=== PATIENT | female | born 1985 | race Caucasian/White ===

== ENCOUNTER 2018-09-30 21:46 | Emergency (ER) | payer SELFPAY ==
--- NOTE | 2018-10-01 03:07 | ER Document Report ---
Entered by NANI ALVES SCRIBE 09/30/18 0494 Acting as scribe for:ALDO ORTIZ DO ED Skin Rash/Insect Bite/Abscs - General Chief Complaint: Rash Stated Complaint: RASH Time Seen by Provider: 09/30/18 23:19 Mode of Arrival: Ambulatory Information source: Patient Notes: Patient is a 33 year old female presenting to the emergency department complaining of a rash on her bilateral upper and lower extremities onset 3 days ago. Patient describes the rash as red and itchy located primarily on her bilateral arms. She reports having a similar rash recently but states it resolved on its own. She also complains of nausea and a fever of 100.4 onset this morning. She denies sore throat, rhinorrhea, earache, vomiting or diarrhea. States she is a lesbian, has not had sex with a man over 6 months. Declines test. TRAVEL OUTSIDE OF THE [place] IN LAST 30 DAYS: No - Related Data Allergies/Adverse Reactions: No Known Allergies Allergy (Unverified 04/14/15 14:30) Past Medical History - General Information source: Patient - Social History Smoking Status: Current Every Day Smoker Cigarette use (# per day): Yes Chew tobacco use (# tins/day): No Smoking Education Provided: No Frequency of alcohol use: None Drug Abuse: None Family History: Reviewed & Not Pertinent Pulmonary Medical History: Reports: Hx Asthma Past Surgical History: Reports: Hx Gynecologic Surgery - d&C x 2 Review of Systems - Review of Systems Constitutional: No symptoms reported EENT: No symptoms reported Cardiovascular: No symptoms reported Respiratory: No symptoms reported Gastrointestinal: No symptoms reported Genitourinary: No symptoms reported Female Genitourinary: No symptoms reported Musculoskeletal: No symptoms reported Skin: See HPI, Rash Hematologic/Lymphatic: No symptoms reported Neurological/Psychological: No symptoms reported -: Yes All other systems reviewed and negative Physical Exam - Notes Notes: GENERAL: Alert, interacts well. No acute distress. HEAD: Normocephalic, atraumatic. EYES: Pupils equal, round, and reactive to light. Extraocular movements intact. ENT: Oral mucosa moist, tongue midline. NECK: Full range of motion. Supple. Trachea midline. LUNGS: No respiratory distress. HEART: Regular rate and rhythm. No murmurs, gallops, or rubs. EXTREMITIES: Moves all 4 extremities spontaneously. NEUROLOGICAL: Alert and oriented x3. Normal speech. PSYCH: Normal affect, normal mood. SKIN: Warm, dry. Scattered raised areas of erythema across the arms bilaterally, few on the bilateral thighs, small amount of clearing and crusting in the center. Negative Nikolsky sign Course - Re-evaluation Re-evalutation: 09/30/18 23:56 Rash appears consistent with tinea corporis however it is possible that this is nummular eczema. Patient does not have a fever here. Patient only had a fever for a part of a day, there were no other associated symptoms. Discussed with patient that I do not have an explanation for the fever and if it recurs or she develops new symptoms she needs to return. Discussed with patient that the treatment for ringworm is antifungals in the treatment for eczema is steroids and that the steroids could make a fungal infection worse. Patient is agreeable to starting with topical antifungals and following up with the secretary of police. Discharged home. Discharge - Discharge Clinical Impression: Tinea corporis Condition: Stable Disposition: HOME, SELF-CARE Additional Instructions: Ringworm (Tinea Corporis) You have a fungal infection of the skin, called tinea corporis. This is sometimes called "ringworm." because it tends forms an enlarging ring on the skin. The infection results from exposure to another person or an animal carrying the fungus, but it is only mildly contagious. There can be mild itching, or sometimes no symptoms at all. The infection is usually treated with antifungal cream. This is applied two or three times daily. Healing may take two or three weeks. Occasionally, oral medication is necessary, for example, when the infection if very large, or if fungus involves the scalp or nails. Fingernail or toenail infections are very difficult to eradicate, often requiring many weeks of treatment. Return for re-examination if your symptoms change significantly -- for example, if you develop fever or chills, red streaks, increasing tenderness, swelling, or blisters at the infection site. It is possible that this is not ringworm but it is instead eczema. If your rash worsens instead of improving with the topical antifungal cream please follow-up with a secretary of police. Please apply the topical antifungal cream of your choice such as Lamisil, Lotrimin or clotrimazole. These are all available [id number] in the drugstore. Forms: Return to Work Scribe Attestation: 10/01/18 03:06 I personally performed the services described in the documentation, reviewed and edited the documentation which was dictated to the scribe in my presence, and it accurately records my words and actions. I personally performed the services described in the documentation, reviewed and edited the documentation which was dictated to the scribe in my presence, and it accurately records my words and actions.
== END 2018-10-01 00:19 | disposition home or self-care (01) ==
LOC: ER 21:46
DX: B35.4 Tinea corporis (principal); R11.0 Nausea; R50.9 Fever, unspecified; F17.210 Nicotine dependence, cigarettes, uncomplicated
CPT/HCPCS: 99282

== ENCOUNTER 2018-12-08 09:42 | Emergency (ER) | payer SELFPAY ==
[2018-12-08 09:59] LABS: APPEARANCE,URINE CLEAR; BILIRUBIN,URINE NEGATIVE (NEGATIVE); GLUCOSE, URINE NEGATIVE (NEGATIVE); KETONES,URINE TRACE mg/dL (NEGATIVE); LEUKOCYTE ESTERASE,URINE LARGE (NEGATIVE); NITRITE,URINE NEGATIVE (NEGATIVE); PROTEIN,URINE NEGATIVE (NEGATIVE); URINE SPECIFIC GRAVITY 1.024; UROBILINOGEN,URINE NEGATIVE mg/dL (<2.0)
[2018-12-08 10:00] LABS: COLOR,URINE YELLOW
[2018-12-08] MEDS ORDERED: IBUPROFEN 600 MG TABLET PO ONE (10:13)
--- NOTE | 2018-12-08 10:15 | ER Document Report ---
ED Medical Screen (RME) - General Chief Complaint: Pelvic Pain Stated Complaint: ABDOMINAL PAIN Time Seen by Provider: 12/08/18 10:03 Mode of Arrival: Ambulatory Information source: Patient TRAVEL OUTSIDE OF THE [place] IN LAST 30 DAYS: No - HPI Patient complains to provider of: VAGINAL D/C Notes: 12/08/18 10:14 Patient here with complaints of vaginal discharge. This occurred after having intercourse with another female. She states that they used fingers, a strap on. This was a week ago and since that time she has had vaginal discharge and lower pelvic discomfort. No fever. No nausea, vomiting, diarrhea. Exam No distress, nontoxic-appearing. Lungs clear and equal throughout. Heart sounds normal. No focal abdominal tenderness on exam. No CVA tenderness. Plan Urine, urine , GC chlamydia, wet prep. An initial examination was made on the patient as part of the triage process, and it was determined a more comprehensive evaluation was necessary. Initial labs were ordered and patient was transferred to another provider in the ED who assumed care and finished evaluation and plan. - Related Data Allergies/Adverse Reactions: morphine Allergy (Verified 12/08/18 10:11) Past Medical History - Social History Frequency of alcohol use: None Drug Abuse: None - Past Medical History Cardiac Medical History: Reports: Hx Congestive Heart Failure Pulmonary Medical History: Reports: Hx Asthma Renal/ Medical History: Denies: Hx Peritoneal Dialysis Past Surgical History: Reports: Hx Gynecologic Surgery - d&C x 2 Physical Exam - Vital signs Vitals: Temp Pulse Resp BP Pulse Ox 97.9 F 91 18 120/75 99 12/08/18 09:50 12/08/18 09:50 12/08/18 09:50 12/08/18 09:50 12/08/18 09:50 Course - Vital Signs Vital signs: Temp Pulse Resp BP Pulse Ox 97.9 F 91 18 120/75 99 12/08/18 09:50 12/08/18 09:50 12/08/18 09:50 12/08/18 09:50 12/08/18 09:50 - Laboratory Laboratory results interpreted by me: 12/08/18 09:43 Urine Ketones TRACE H Ur Leukocyte Esterase LARGE H
[2018-12-08] MEDS ORDERED: ACETAMINOPHEN 325 MG TABLET PO ONE (12:02)
[2018-12-08 12:17] LABS: RBCS (WET MOUNT) NO RBCS SEEN; T.VAGINALIS (WET MOUNT) TRICHOMONAS SEEN; WBCS (WET MOUNT) FEW WBCS SEEN; YEAST (WET MOUNT) NO YEAST SEEN
[2018-12-08 12:43] LABS: ABSOLUTE EOSINOPHILS # (AUTO) 0.1 10^3/uL (0.0-0.6); ABSOLUTE LYMPHOCYTES (AUTO) 2.5 10^3/uL (0.5-4.7); ABSOLUTE MONOCYTES (AUTO) 0.5 10^3/uL (0.1-1.4); ABSOLUTE NEUT (AUTO) 5.4 10^3/uL (1.7-8.2); BASOPHILS % (AUTO) 0.3 % (0-2); EOSINOPHILS % (AUTO) 0.8 % (0-6); HEMATOCRIT 36.3 % (36.0-47.0); HEMOGLOBIN 12.4 g/dL (12.0-15.5); LYMPHOCYTES % (AUTO) 28.9 % (13-45); MEAN CORPUSCULAR HEMOGLOBIN 31.2 pg (27.0-33.4); MEAN CORPUSCULAR HGB CONC 34.1 g/dL (32.0-36.0); MEAN CORPUSCULAR VOLUME 92 fl (80-97); PLATELET COUNT 321 10^3/uL (150-450); RED BLOOD COUNT 3.96 10^6/uL (3.72-5.28); RED CELL DISTRIBUTION WIDTH 12.9 % (11.5-14.0); TOTAL CELLS COUNTED % (AUTO) 100 %; WHITE BLOOD COUNT 8.5 10^3/uL (4.0-10.5)
[2018-12-08 13:04] LABS: ALANINE AMINOTRANSFERASE 57 U/L (9-52); ALBUMIN 3.8 g/dL (3.5-5.0); ALKALINE PHOSPHATASE 81 U/L (38-126); ANION GAP 8 (5-19); ASPARTATE AMINO TRANSFERASE 39 U/L (14-36); BILIRUBIN,DIRECT 0.2 mg/dL (0.0-0.4); BILIRUBIN,TOTAL 0.3 mg/dL (0.2-1.3); BLOOD UREA NITROGEN 13 mg/dL (7-20); CALCIUM 9.1 mg/dL (8.4-10.2); CARBON DIOXIDE 26 mmol/L (22-30); CHLORIDE 107 mmol/L (98-107); GLUCOSE 89 mg/dL (75-110); POTASSIUM 4.3 mmol/L (3.6-5.0); SODIUM 141.4 mmol/L (137-145); TOTAL PROTEIN 6.7 g/dL (6.3-8.2)
[2018-12-08 14:26] LABS: CHLAM PCR NOT DETECTED (NOT DETECT); GON PCR NOT DETECTED (NOT DETECT)
[2018-12-08] MEDS ORDERED: CEPHALEXIN 500 MG CAPSULE PO ONE (14:35)
[2018-12-08] MEDS ORDERED: METRONIDAZOLE 500 MG TABLET PO ONE (14:35)
--- NOTE | 2018-12-08 14:48 | RADIOLOGY REPORT (SQ) ---
EXAM DESCRIPTION: U/S NON OB PEL TV W/DOPPLER COMPLETED DATE/TIME: 12/08/2018 2:40 pm REASON FOR STUDY: tender RLQ, possible TOA? COMPARISON: None. TECHNIQUE: Dynamic and static grayscale images acquired of the pelvis via transvaginal approach and recorded on PACS. Additional selected color Doppler and spectral images recorded. LIMITATIONS: None. FINDINGS: UTERUS: Contour normal. No mass. ENDOMETRIAL STRIPE: No focal or generalized thickening. No masses. CERVIX: No nabothian cysts. RIGHT OVARY AND DOPPLER: Normal size. No worrisome masses. Incidental note is made of a dominant fol licle. Normal arterial vascular flow without evidence for torsion. LEFT OVARY AND DOPPLER: Normal size. No worrisome masses. Normal arterial vascular flow without evide nce for torsion. FREE FLUID: A small amount of simple appearing free fluid is seen within the pelvic cul-de-sac. OTHER: No other significant finding. MEASUREMENTS: UTERUS: 7.3 x 4.1 x 6.0 cm ENDOMETRIAL STRIPE: 0.9 cm RIGHT OVARY: 3.6 x 2.9 x 3.0 cm LEFT OVARY: 1.8 x 2.2 x 1.5 cm IMPRESSION: NORMAL TRANSVAGINAL PELVIC ULTRASOUND. TECHNICAL DOCUMENTATION: JOB ID: [id number] [employer]- All Rights Reserved Rev-12/24 Reading location - IP/workstation name: [email or web address]
[2018-12-08 15:51] VITALS: BP 101/59
--- NOTE | 2018-12-10 04:07 | ER Document Report ---
Entered by LAUREN AGUERO SCRIBE 12/08/18 1127 Acting as scribe for:ALDO ORTIZ DO ED GI/ - General Chief Complaint: Pelvic Pain Stated Complaint: ABDOMINAL PAIN Time Seen by Provider: 12/08/18 10:03 Mode of Arrival: Ambulatory Information source: Patient Notes: 33-year-old female who presents to the emergency department today with complaints of vaginal discharge along with associated abdominal pain. Patient states she had a new female sexual partner recently so there is some concern for STI. Patient describes her vaginal discharge as being thick. Patient describes her abdominal pain as a pressure sensation stating that she feels like she has to pee all the time. Patient has had fevers and diarrhea although she has not taken her temperature. Patient denies any history of STI. TRAVEL OUTSIDE OF THE [place] IN LAST 30 DAYS: No - Related Data Allergies/Adverse Reactions: morphine Allergy (Verified 12/08/18 10:11) Past Medical History - General Information source: Patient - Social History Smoking Status: Current Every Day Smoker Cigarette use (# per day): Yes Frequency of alcohol use: None Drug Abuse: None Lives with: Family Family History: Reviewed & Not Pertinent Patient has suicidal ideation: No Patient has homicidal ideation: No - Past Medical History Cardiac Medical History: Reports: Hx Congestive Heart Failure Pulmonary Medical History: Reports: Hx Asthma Past Surgical History: Reports: Hx Gynecologic Surgery - d&C x 2 Review of Systems - Review of Systems Constitutional: See HPI, Fever EENT: No symptoms reported Cardiovascular: No symptoms reported Respiratory: No symptoms reported Gastrointestinal: See HPI, Abdominal pain, Diarrhea Genitourinary: No symptoms reported Female Genitourinary: See HPI, Vaginal discharge Musculoskeletal: No symptoms reported Skin: No symptoms reported Hematologic/Lymphatic: No symptoms reported Neurological/Psychological: No symptoms reported -: Yes All other systems reviewed and negative Physical Exam - Vital signs Vitals: Temp Pulse Resp BP Pulse Ox 97.9 F 91 18 120/75 99 12/08/18 09:50 12/08/18 09:50 12/08/18 09:50 12/08/18 09:50 12/08/18 09:50 - Notes Notes: PHYSICAL EXAM GENERAL: Alert, interacts well. No acute distress. HEAD: Normocephalic, atraumatic. EYES: Pupils equal, round, and reactive to light. Extraocular movements intact. ENT: Oral mucosa moist, tongue midline. NECK: Full range of motion. Supple. Trachea midline. LUNGS: No respiratory distress. ABDOMEN: Soft, RLQ, LLQ, and suprapubic tenderness with palpation. Non- distended. Bowel sounds present in all 4 quadrants. No guarding, rigidity, or rebound. EXTREMITIES: Moves all 4 extremities spontaneously. No edema, radial and dorsalis pedis pulses 2/4 bilaterally. No cyanosis. BACK: Left CVA tenderness to percussion. NEUROLOGICAL: Alert and oriented x3. Normal speech. PSYCH: Normal affect, normal mood. SKIN: Warm, dry, normal turgor. No rashes or lesions noted. - Genitourinary External exam: Normal Speculum exam: Vaginal discharge - Thin greenish vaginal discharge Vaginal bleeding: None Bimanuel exam: Adnexal tenderness - Thin greenish vaginal discharge. Right adnexal tenderness Course - Re-evaluation Re-evalutation: 12/08/18 14:35 CBC unremarkable, CMP grossly unremarkable, urinalysis shows trace ketones but large leukocyte esterase, since she has pressure when she urinates even though there are 30 squames epithelial cells I will treat this is a true urinary tract infection, pelvic examination does show tenderness over the right adnexa so transvaginal ultrasound was ordered to rule out tubo-ovarian abscess, wet prep does show trichomonas, no gonorrhea or chlamydia detected on endocervical swabs. - Vital Signs Vital signs: Temp Pulse Resp BP Pulse Ox 97.7 F 82 14 101/59 L 100 12/08/18 15:49 12/08/18 15:49 12/08/18 15:49 12/08/18 15:49 12/08/18 15:49 - Laboratory Result Diagrams: 12/08/18 12:31 12/08/18 12:31 Laboratory results interpreted by me: 12/08/18 12/08/18 09:43 12:31 AST 39 H ALT 57 H Urine Ketones TRACE H Ur Leukocyte Esterase LARGE H Discharge - Discharge Clinical Impression: Trichomonal vaginitis UTI (urinary tract infection) Qualifiers: Urinary tract infection type: acute cystitis Hematuria presence: without hematuria Qualified Code(s): N30.00 - Acute cystitis without hematuria Condition: Stable Disposition: HOME, SELF-CARE Additional Instructions: Trichomonas Infection Trichomoniasis is infection of the vagina with Trichomonas vaginalis. It can be asymptomatic or cause urethritis, vaginitis, or occasionally cystitis, epididymitis, or prostatitis. Diagnosis is by microscopic examination of vaginal or prostatic secretions or by urethral culture. Patients and sex partners are treated with metronidazole. In women, symptoms range from none to copious, yellow-green, frothy vaginal discharge with soreness of the vulva and perineum, dyspareunia, and dysuria. Asymptomatic infection may become symptomatic at any time as the vulva and perineum become inflamed and edema develops in the labia. The vaginal lopez and surface of the cervix may have punctate, red "strawberry" spots. Urethritis and possibly cystitis may also occur. Your sex partners should be screened and treated for trichomoniasis. They can be seen by the primary care physician, by the health department or in the emergency department. Urinary Tract Infection Your evaluation indicates that you have a urinary tract infection. This is due to germs growing in the bladder. This is a common problem. This infection usually responds quickly to antibiotics. Your antibiotic should be taken exactly as prescribed. Drink plenty of fluids -- three to four quarts a day. Occasionally, a bladder anesthetic will be prescribed to help stop the feeling of urgency until the antibiotic has a chance to clear the infection. This may cause your urine to be dark orange. Certain urine infections require a culture. If the doctor obtained a culture, the results will be back in two days. You should call to see if a change in treatment is needed. A repeat urinalysis after you finish treatment is often recommended. The physician will let you know if further testing is required. Call the doctor if you develop fever, chills, flank pain, inability to urinate, or blood in the urine. Prescriptions: Cephalexin Monohydrate [Keflex 500 mg Capsule] 1,000 mg PO BID 5 Days capsule Metronidazole [Flagyl 500 mg Tablet] 500 mg PO BID #14 tablet Forms: Return to Work I personally performed the services described in the documentation, reviewed and edited the documentation which was dictated to the scribe in my presence, and it accurately records my words and actions.
== END 2018-12-08 15:51 | disposition home or self-care (01) ==
LOC: ER 09:42
DX: A59.01 Trichomonal vulvovaginitis (principal); N30.00 Acute cystitis without hematuria; R19.7 Diarrhea, unspecified; F17.210 Nicotine dependence, cigarettes, uncomplicated; J45.909 Unspecified asthma, uncomplicated; R50.9 Fever, unspecified; Z88.5 Allergy status to narcotic agent
CPT/HCPCS: 36415; 76830; 80053; 81001; 81025; 85025; 87086; 87210; 87491; 87591; 93976; 99284

== ENCOUNTER 2019-06-21 09:06 | Emergency (ER) | payer MEDICAID ==
[2019-06-21] MEDS ORDERED: ACETAMINOPHEN 325 MG TABLET PO ONE (09:30)
[2019-06-21] MEDS ORDERED: BENZONATATE 100 MG CAPSULE PO ONE (09:31)
[2019-06-21] MEDS ORDERED: IBUPROFEN 600 MG TABLET PO ONE (09:31)
[2019-06-21] MEDS ORDERED: DEXAMETHASONE SOD PHOS INJ 10 MG/1 ML VIAL IM ONE (09:31)
[2019-06-21] MEDS ORDERED: IPRATROPIUM/ALBUTEROL 0.5-2.5 MG/3 ML AMPUL NEB ONE (09:35)
--- NOTE | 2019-06-21 09:38 | ER Document Report ---
HPI - HPI Patient complains to provider of: cough, sore throat Time Seen by Provider: 06/21/19 09:18 Pain Level: 1 Context: 34-year-old female with asthma and history of pneumonia about 2 years ago presents to the emergency department with chief complaint of cough, sore throat, swollen lymph nodes, body aches, malaise, headache since this morning. Patient was seen by her primary doctor yesterday and was feeling fine and had a normal physical exam. Patient states that she woke up and felt terrible and she attempted to take some lfjj-[id number] sinus medications without relief. Patient has a very hoarse cough when interviewing in the room. Patient denies neck stiffness or vision changes. Patient denies earache but complains of right ear "fullness". Patient with pain with swallowing and reduced appetite. States she vomited once secondary to coughing this morning. Denies nausea/vomiting/diarrhea/constipation/abdominal pain. States that she does have some urinary symptoms but her doctor put her on "something for it" yesterday. No other complaints. Patient is a smoker. - EENT EENT: REPORTS: Sore Throat - RESPIRATORY Respiratory: REPORTS: Coughing - REPRODUCTIVE Reproductive: DENIES: : Past Medical History - Social History Smoking Status: Current Every Day Smoker Family History: Reviewed & Not Pertinent Patient has suicidal ideation: No Patient has homicidal ideation: No - Past Medical History Cardiac Medical History: Reports: Hx Congestive Heart Failure Pulmonary Medical History: Reports: Hx Asthma Renal/ Medical History: Denies: Hx Peritoneal Dialysis Past Surgical History: Reports: Hx Gynecologic Surgery - d&C x 2 Vertical Provider Document - CONSTITUTIONAL Notes: PHYSICAL EXAMINATION: Reviewed vital signs and charting by RN GENERAL: Alert, interacts well. No acute distress. Nontoxic-appearing HEAD: Normocephalic, atraumatic. EYES: Pupils equal and round. Extraocular movements intact. ENT: Oral mucosa moist, tongue midline, 1+ tonsillar hypertrophy on the left side, uvula midline. NECK: Full range of motion. Trachea midline. Right side anterior cervical lymphadenopathy s, rales, or rhonchi. No respiratory distress. HEART: Regular rhythm and tachycardic rate 118. No murmur ABDOMEN: soft, non-tender. No distention. Bowel sounds present EXTREMITIES: Moves all 4 extremities spontaneously. No edema, No cyanosis. PSYCH: Normal affect, normal mood. SKIN: Warm, dry, normal turgor. No rashes or lesions noted. - INFECTION CONTROL TRAVEL OUTSIDE OF THE [place] IN LAST 30 DAYS: No Course - Re-evaluation Re-evalutation: 06/21/19 09:36 Patient is feeling poor but is nontoxic-appearing. My differential includes influenza versus another viral etiology versus pneumonia versus streptococcal pharyngitis. Plan is to get a chest x-ray, rapid strep, rapid flu. She is tachycardic and I am encouraging p.o. intake. 06/21/19 10:33 Patient drank 2 large cups of water and was medicated. Repeat vitals showed a heart rate of 95. Her rapid strep and rapid flu were both negative. Chest x- ray did not show evidence of focal infiltrate or concern for a pneumonia. I encouraged patient to increase her hydration. She most likely has an upper respiratory infection as she states that she does have sick contacts in the house. I clarified and she states that she is not allergic to morphine so I am going to give her Hycodan to help with her cough. She is stable for discharge. - Vital Signs Vital signs: Temp Pulse Resp BP Pulse Ox 98.3 F 124 H 18 120/88 H 100 06/21/19 09:09 06/21/19 09:09 06/21/19 09:09 06/21/19 09:09 06/21/19 09:09 Discharge - Discharge Clinical Impression: Cough Upper respiratory infection Qualifiers: URI type: unspecified URI Qualified Code(s): J06.9 - Acute upper respiratory infection, unspecified Condition: Good Disposition: HOME, SELF-CARE Instructions: Sore Throat ([facility]), Upper Respiratory Illness ([facility]) Additional Instructions: You have been seen and treated in the emergency department for an upper respiratory infection. These are typically caused by viruses and do not respond to antibiotics. Please make sure you using any prescription medications as prescribed. Please also continue to take [id number] Tylenol and Motrin for your generalized body aches, fever. Please stay well-hydrated and get plenty of rest. Please follow-up with your primary care provider in the next 24 to 48 hours. Please return to the emergency room should you have any other concerning symptoms. Prescriptions: Benzonatate [Tessalon Perle 100 mg Capsule] 100 mg PO Q8HP PRN #40 cap PRN Reason: Prednisone [Deltasone 20 mg Tablet] 3 tab PO DAILY 5 Days tablet Forms: Return to Work
[2019-06-21 10:20] LABS: A TYPE INFLUENZA AG NEGATIVE (NEGATIVE); B INFLUENZA AG NEGATIVE (NEGATIVE)
[2019-06-21] MEDS ORDERED: NORMAL SALINE 1000 ML 1,000 ML IV PRN (10:25)
--- NOTE | 2019-06-21 10:27 | RADIOLOGY REPORT (SQ) ---
EXAM DESCRIPTION: CHEST 2 VIEWS COMPLETED DATE/TIME: 06/21/2019 10:12 am REASON FOR STUDY: cough, tachycardia/ r/o PNA COMPARISON: None. EXAM PARAMETERS: NUMBER OF VIEWS: two views TECHNIQUE: Digital Frontal and Lateral radiographic views of the chest acquired. RADIATION DOSE: NA LIMITATIONS: none FINDINGS: LUNGS AND PLEURA: No opacities, masses or pneumothorax. No pleural effusion. MEDIASTINUM AND HILAR STRUCTURES: No masses or contour abnormalities. HEART AND VASCULAR STRUCTURES: Heart normal size. No evidence for failure. BONES: No acute findings. HARDWARE: None in the chest. OTHER: No other significant finding. IMPRESSION: NO ACUTE RADIOGRAPHIC FINDING IN THE CHEST. TECHNICAL DOCUMENTATION: JOB ID: [id number] [employer]- All Rights Reserved Reading location - IP/workstation name: [email or web address]
[2019-06-21 10:35] VITALS: BP 113/77
== END 2019-06-21 10:34 | disposition home or self-care (01) ==
LOC: ER 09:06
DX: J06.9 Acute upper respiratory infection, unspecified (principal); J02.9 Acute pharyngitis, unspecified; M79.10 Myalgia, unspecified site; F17.200 Nicotine dependence, unspecified, uncomplicated; I50.9 Heart failure, unspecified
CPT/HCPCS: 87070; 87880; 87804; 71046; J3490 ×3; J1100; J7620

== ENCOUNTER → 2019-06-22 | Outpatient (CLI) | payer MEDICAID ==
--- NOTE | 2019-06-22 14:42 | RADIOLOGY REPORT (SQ) ---
EXAM DESCRIPTION: SCOLIOSIS SERIES COMPLETED DATE/TIME: 06/22/2019 1:10 pm REASON FOR STUDY: SCOLIOSIS, UNSPECIFIED M41.9 SCOLIOSIS, UNSPECIFIED COMPARISON: None. NUMBER OF VIEWS: One view. TECHNIQUE: Standing AP exam of the thoracolumbar spine with measurement of the VASQUEZ angles. LIMITATIONS: None. FINDINGS: GENERALIZED BONY FINDINGS: No anomalies. No worrisome bone lesions. THORACIC SPINE: APEX: T7 ANGULATION: Right DEGREES: 9 LUMBAR SPINE: APEX: L3 ANGULATION: Left DEGREES: 3 CHANGE: OTHER: No other significant findings. IMPRESSION: SCOLIOSIS WITH MEASUREMENTS ABOVE. TECHNICAL DOCUMENTATION: JOB ID: [id number] [employer]- All Rights Reserved Reading location - IP/workstation name: [email or web address]
== END ==
LOC: OD 12:57
PROVIDERS: ATTEND Nurse Practitioner Family
DX: M41.85 Other forms of scoliosis, thoracolumbar region (principal)
CPT/HCPCS: 72082

== ENCOUNTER 2020-04-17 15:17 | Emergency (ER) | payer MEDICAID ==
[2020-04-17 15:28] VITALS: BP 115/77
--- NOTE | 2020-04-17 15:38 | ER Document Report ---
ED Medical Screen (RME) - General Chief Complaint: Abdominal Pain Stated Complaint: ABDOMINAL PAIN,NAVAL PAIN Time Seen by Provider: 04/17/20 15:32 Primary Care Provider: MARTINE BILLINGSLEY FNP-C [Primary Care Provider] - Follow up as needed Mode of Arrival: Ambulatory Information source: Patient Notes: 35-year-old female patient presents emergency department chief complaint of mid abdominal pain. Patient reports she is a history of an umbilical hernia, she states for the last 3 days it has been popped out and painful. She reports she vomited once today. Denies any fever or chills, reports normal bowel movements. Patient does have a palpable umbilical hernia, I am not trying to reduce it in triage secondary to pain. There is no surrounding erythema or ecchymosis. There is no acute distress noted. I have greeted and performed a rapid initial assessment of this patient. A comprehensive ED assessment and evaluation of the patient, analysis of test re sults and completion of the medical decision making process will be conducted by additional ED providers. I have specifically instructed the patient or family members with the patient to immediately return to any nursing staff should anything change in the patient's condition or with their chief complaint. TRAVEL OUTSIDE OF THE [place] IN LAST 30 DAYS: No - Related Data Allergies/Adverse Reactions: morphine Allergy (Verified 04/17/20 15:27) Past Medical History - Past Medical History Cardiac Medical History: Reports: Hx Congestive Heart Failure Pulmonary Medical History: Reports: Hx Asthma Renal/ Medical History: Denies: Hx Peritoneal Dialysis Past Surgical History: Reports: Hx Gynecologic Surgery - d&C x 2 Physical Exam - Vital signs Vitals: Temp Pulse Resp BP Pulse Ox 98.7 F 91 18 115/77 98 04/17/20 15:27 04/17/20 15:27 04/17/20 15:27 04/17/20 15:27 04/17/20 15:27 Course - Vital Signs Vital signs: Temp Pulse Resp BP Pulse Ox 98.7 F 91 18 115/77 98 04/17/20 15:27 04/17/20 15:27 04/17/20 15:27 04/17/20 15:27 04/17/20 15:27 Doctor's Discharge - Discharge Referrals: MARTINE BILLINGSLEY FNP-C [Primary Care Provider] - Follow up as needed
[2020-04-17 16:14] LABS: ABSOLUTE BASOPHILS # (AUTO) 0.1 10^3/uL (0.0-0.2); ABSOLUTE EOSINOPHILS # (AUTO) 0.1 10^3/uL (0.0-0.6); ABSOLUTE LYMPHOCYTES (AUTO) 3.1 10^3/uL (0.5-4.7); ABSOLUTE MONOCYTES (AUTO) 0.5 10^3/uL (0.1-1.4); ABSOLUTE NEUT (AUTO) 4.1 10^3/uL (1.7-8.2); BASOPHILS % (AUTO) 1.2 % (0-2); EOSINOPHILS % (AUTO) 1.8 % (0-6); HEMATOCRIT 41.5 % (36.0-47.0); HEMOGLOBIN 14.3 g/dL (12.0-15.5); LYMPHOCYTES % (AUTO) 38.9 % (13-45); MEAN CORPUSCULAR HEMOGLOBIN 30.6 pg (27.0-33.4); MEAN CORPUSCULAR HGB CONC 34.5 g/dL (32.0-36.0); MEAN CORPUSCULAR VOLUME 89 fl (80-97); MONOCYTES % (AUTO) 6.5 % (3-13); PLATELET COUNT 380 10^3/uL (150-450); RED BLOOD COUNT 4.68 10^6/uL (3.72-5.28); RED CELL DISTRIBUTION WIDTH 12.6 % (11.5-14.0); SEGMENTED NEUTROPHILS % (AUTO) 51.6 % (42-78); TOTAL CELLS COUNTED % (AUTO) 100 %; WHITE BLOOD COUNT 7.9 10^3/uL (4.0-10.5)
[2020-04-17 16:21] LABS: APPEARANCE,URINE SLIGHTLY-CLOUDY; BILIRUBIN,URINE NEGATIVE (NEGATIVE); COLOR,URINE YELLOW; GLUCOSE, URINE NEGATIVE (NEGATIVE); KETONES,URINE TRACE mg/dL (NEGATIVE); LEUKOCYTE ESTERASE,URINE NEGATIVE (NEGATIVE); NITRITE,URINE NEGATIVE (NEGATIVE); PROTEIN,URINE NEGATIVE (NEGATIVE); URINE SPECIFIC GRAVITY 1.026
[2020-04-17 16:42] LABS: ALBUMIN 4.5 g/dL (3.5-5.0); ALKALINE PHOSPHATASE 112 U/L (38-126); ANION GAP 8 (5-19); ASPARTATE AMINO TRANSFERASE 21 U/L (14-36); BILIRUBIN,DIRECT 0.3 mg/dL (0.0-0.4); BILIRUBIN,TOTAL 0.4 mg/dL (0.2-1.3); BLOOD UREA NITROGEN 19 mg/dL (7-20); CALCIUM 9.7 mg/dL (8.4-10.2); CARBON DIOXIDE 22 mmol/L (22-30); CHLORIDE 111 mmol/L (98-107); GLUCOSE 101 mg/dL (75-110); POTASSIUM 4.6 mmol/L (3.6-5.0); TOTAL PROTEIN 7.6 g/dL (6.3-8.2)
--- NOTE | 2020-04-17 16:43 | RADIOLOGY REPORT (SQ) ---
EXAM DESCRIPTION: U/S ABDOMEN LIMITED W/O DOP IMAGES COMPLETED DATE/TIME: 04/17/2020 4:26 pm REASON FOR STUDY: eval for incarcerated umbilical hernia COMPARISON: None. TECHNIQUE: Dynamic and static grayscale images acquired of the localized site of clinical concern an d recorded on PACS. Additional selected color Doppler and spectral images recorded. SITE OF CONCERN: Umbilicus. LIMITATIONS: None. FINDINGS: There is a defect just inferior to the umbilicus measuring about 2.8 cm maximum diameter. Peristalsing bowel visualized with Valsalva within the hernia. No dilated loops. IMPRESSION: Incarcerated umbilical hernia. TECHNICAL DOCUMENTATION: JOB ID: [id number] 2010 [employer]- All Rights Reserved Reading location - IP/workstation name: [email or web address]
== END 2020-04-17 16:55 | disposition left against medical advice (07) ==
LOC: ER 15:17
DX: K42.0 Umbilical hernia with obstruction, without gangrene (principal); R11.10 Vomiting, unspecified; J45.909 Unspecified asthma, uncomplicated; Z88.6 Allergy status to analgesic agent; Z88.5 Allergy status to narcotic agent; Z53.20 Procedure and treatment not carried out because of patient's decision for unspecified reasons
CPT/HCPCS: 36415; 76705; 80053; 81001; 84703; 85025; 99281

== ENCOUNTER 2020-04-18 07:27 | Emergency (ER) | payer MEDICAID ==
[2020-04-18] MEDS ORDERED: ONDANSETRON HCL INJ/PF 4 MG/2 ML SDV IV ONE (07:46)
[2020-04-18] MEDS ORDERED: FENTANYL CITRATE INJ/PF 100 MCG/2 ML AMPUL IV ONE (07:46)
--- NOTE | 2020-04-18 07:49 | ER Document Report ---
ED General - General Chief Complaint: Abdominal Pain Stated Complaint: ABDOMINAL PAIN/NAVL PAIN Time Seen by Provider: 04/18/20 07:34 Primary Care Provider: MARTINE BILLINGSLEY FNP-C [Primary Care Provider] - Follow up as needed ISRAEL BAILEY MD [ACTIVE STAFF] - Follow up as needed Notes: 35-year-old female with 6 months of swelling and a knot inferior to her umbilicus presents with 48 hours of nausea and vomiting. She is been unable to eat and the pain of her umbilical hernia is worse. She was seen here yesterday, ultrasound showed the bowel containing incarcerated inguinal hernia. She was offered surgical consultation but due to social issues and a ride she went home. She tried eat a sandwich at 5 yesterday and vomited and has had nothing by mouth since then. Pain is described as severe worse with movement associate with nausea vomiting. No fever. No alcohol or drugs. TRAVEL OUTSIDE OF THE [place] IN LAST 30 DAYS: No - Related Data Allergies/Adverse Reactions: morphine Allergy (Verified 04/18/20 07:38) Past Medical History - General Information source: Patient - Social History Smoking Status: Current Every Day Smoker Chew tobacco use (# tins/day): No Smoking Education Provided: Yes - The patient ED visit today was directly related to their abuse of tobacco. Frequency of alcohol use: None Drug Abuse: None Family History: Reviewed & Not Pertinent Patient has homicidal ideation: No - Past Medical History Cardiac Medical History: Reports: Hx Congestive Heart Failure Pulmonary Medical History: Reports: Hx Asthma Renal/ Medical History: Denies: Hx Peritoneal Dialysis Past Surgical History: Reports: Hx Gynecologic Surgery - d&C x 2 Review of Systems - Review of Systems Notes: Patient presents with incarcerated medical hernia greater than 48 hours It is tender I am not going to try to reduce it for fear of unhealthy bowel being reintroduced to the abdominal cavity She has no clinical signs of obstruction necrosis or sepsis but will check labs white count give IV medication, and discussed with Dr. Bailey who will evaluate the patient in the ED and recommended a CT. Physical Exam - Vital signs Vitals: Temp Pulse Resp BP Pulse Ox 98.6 F 102 H 18 126/87 H 97 04/18/20 07:30 04/18/20 07:30 04/18/20 07:30 04/18/20 07:30 04/18/20 07:30 Course - Re-evaluation Re-evalutation: 04/18/20 08:40 Incarcerate umbilical hernia seen on imaging yesterday. Patient looks well and there is no skin discoloration Discussed with Dr. Bailey who will come evaluate the patient. Labs pending peer Dr. Bailey saw the patient at 8:40 AM and when preparing for surgery he was asked able to reduce the hernia easily. We discussed that he will be following the patient up in the office. Will p.o. challenge and discharge. CT not need ed. I have discussed with the patient there likely diagnosis, aftercare plan, follow-up plans and my usual and customary return precautions. They verbalized understanding of this. I have discussed with the patient there likely diagnosis, aftercare plan, follow-up plans and my usual and customary return precautions. They verbalized understanding of this. 04/18/20 15:38 - Vital Signs Vital signs: Temp Pulse Resp BP Pulse Ox 97.9 F 87 16 108/79 99 04/18/20 09:22 04/18/20 09:22 04/18/20 09:22 04/18/20 09:22 04/18/20 09:22 - Laboratory Result Diagrams: 04/18/20 08:04 04/18/20 08:04 Laboratory results interpreted by me: 04/18/20 04/18/20 08:04 08:04 WBC 14.3 H Absolute Neuts (auto) 9.6 H Chloride 108 H Carbon Dioxide 20 L Glucose 123 H Discharge - Discharge Clinical Impression: Incarcerated umbilical hernia Condition: Good Disposition: HOME, SELF-CARE Instructions: Abdominal Pain ([facility]), Umbilical Hernia ([facility]) Referrals: MARTINE BILLINGSLEY FNP-C [Primary Care Provider] - Follow up as needed ISRAEL BAILEY MD [ACTIVE STAFF] - Follow up as needed
[2020-04-18 08:38] LABS: ABSOLUTE BASOPHILS # (AUTO) 0.1 10^3/uL (0.0-0.2); ABSOLUTE EOSINOPHILS # (AUTO) 0.2 10^3/uL (0.0-0.6); ABSOLUTE LYMPHOCYTES (AUTO) 3.7 10^3/uL (0.5-4.7); ABSOLUTE MONOCYTES (AUTO) 0.7 10^3/uL (0.1-1.4); ABSOLUTE NEUT (AUTO) 9.6 10^3/uL (1.7-8.2); BASOPHILS % (AUTO) 0.4 % (0-2); EOSINOPHILS % (AUTO) 1.1 % (0-6); HEMATOCRIT 38.8 % (36.0-47.0); HEMOGLOBIN 13.5 g/dL (12.0-15.5); LYMPHOCYTES % (AUTO) 26.1 % (13-45); MEAN CORPUSCULAR HEMOGLOBIN 30.4 pg (27.0-33.4); MEAN CORPUSCULAR HGB CONC 34.7 g/dL (32.0-36.0); MEAN CORPUSCULAR VOLUME 88 fl (80-97); PLATELET COUNT 388 10^3/uL (150-450); RED BLOOD COUNT 4.43 10^6/uL (3.72-5.28); RED CELL DISTRIBUTION WIDTH 12.5 % (11.5-14.0); SEGMENTED NEUTROPHILS % (AUTO) 67.4 % (42-78); TOTAL CELLS COUNTED % (AUTO) 100 %; WHITE BLOOD COUNT 14.3 10^3/uL (4.0-10.5)
[2020-04-18 08:53] LABS: ANION GAP 12 (5-19); BLOOD UREA NITROGEN 16 mg/dL (7-20); CALCIUM 9.8 mg/dL (8.4-10.2); CARBON DIOXIDE 20 mmol/L (22-30); CHLORIDE 108 mmol/L (98-107); GLUCOSE 123 mg/dL (75-110); POTASSIUM 4.2 mmol/L (3.6-5.0)
--- NOTE | 2020-04-18 09:11 | PDOC CONSULTATION ---
Consultation Consult Date: 04/18/20 Provider Consulted: SURGICAL SURGICALIST MD Consult reason:: "Incarcerated" umbilical hernia, reduced in the ER by me. History of Present Illness Admission Date/PCP: KATIA NEWTON History of Present Illness: KAILA YEE is a 35 year old female seen in consultation by the emergency room physician. This patient has a 6-month history of an umbilical hernia. It has been reducible in the past. For the past 2 days, the patient reports that it has been protruding, and will not go back in. She reports pain at the hernia site, nausea, and vomiting. She denies fevers or chills. She denies chest pain, shortness of breath, diffuse abdominal pain, melena, hematochezia, hematemesis, headache, dizziness, orthostasis. The patient was seen in the emergency department yesterday, however she left AMA after receiving pain medications. She presents today for continued abdominal discomfort at the site of her hernia. Past Medical History Cardiac Medical History: Reports: Congestive Heart Failure Pulmonary Medical History: Reports: Asthma Social History Smoking Status: Current Every Day Smoker Electronic Cigarette use?: No Family History Family History: Reviewed & Not Pertinent Parental Family History Reviewed: Yes Children Family History Reviewed: Yes Sibling(s) Family History Reviewed.: Yes Medication/Allergy Allergies/Adverse Reactions: morphine Allergy (Verified 04/18/20 07:38) Review of Systems Constitutional: ABSENT: chills, fatigue, fever(s), weakness Eyes: ABSENT: visual disturbances Ears: ABSENT: hearing changes Nose, Mouth, and Throat: ABSENT: sore throat Cardiovascular: ABSENT: chest pain Respiratory: ABSENT: cough Gastrointestinal: PRESENT: abdominal pain - Periumbilical Genitourinary: ABSENT: dysuria Musculoskeletal: ABSENT: back pain Integumentary: ABSENT: pruritus, rash Neurological: ABSENT: confusion, convulsions, dizziness Psychiatric: ABSENT: anxiety, depression Endocrine: ABSENT: cold intolerance, heat intolerance Hematologic/Lymphatic: ABSENT: easy bleeding, easy bruising Physical Exam Vital Signs: Temp Pulse Resp BP Pulse Ox 98.6 F 102 H 18 126/87 H 97 04/18/20 07:30 04/18/20 07:30 04/18/20 07:30 04/18/20 07:30 04/18/20 07:30 Intake & Output 0904/18/20 04/19/20 06:59 06:59 06:59 Weight 65.8 kg General appearance: PRESENT: no acute distress, cooperative Head exam: PRESENT: atraumatic, normocephalic Eye exam: PRESENT: EOMI, PERRLA. ABSENT: scleral icterus Mouth exam: PRESENT: moist, neck supple Neck exam: ABSENT: meningismus, tenderness, thyromegaly, tracheal deviation Respiratory exam: PRESENT: unlabored. ABSENT: tachypnea, wheezes Cardiovascular exam: PRESENT: tachycardia - Mild Pulses: PRESENT: normal radial pulses Vascular exam: PRESENT: normal capillary refill GI/Abdominal exam: PRESENT: hernia - Small umbilical hernia, reducible with pressure., soft, tenderness - Mild abdominal tenderness. No rebound tenderness. No diffuse abdominal tenderness.. ABSENT: firm, guarding, rebound, rigid Rectal exam: PRESENT: deferred Extremities exam: ABSENT: clubbing Musculoskeletal exam: ABSENT: deformity Neurological exam: PRESENT: alert, awake, oriented to person, oriented to place, oriented to time, oriented to situation, CN II-XII grossly intact. ABSENT: motor sensory deficit Psychiatric exam: ABSENT: agitated, anxious, depressed Focused psych exam: ABSENT: delusional Skin exam: ABSENT: cyanosis, erythema, jaundice Results Laboratory Results: 04/18/20 08:04 04/18/20 08:04 WBC 14.3 H RBC 4.43 Hgb 13.5 Hct 38.8 MCV 88 MCH 30.4 MCHC 34.7 RDW 12.5 Plt Count 388 Seg Neutrophils % 67.4 Assessment & Plan - Diagnosis (1) Reducible umbilical hernia Is this a current diagnosis for this admission?: Yes - Plan Summary Plan Summary: This is a 35-year-old female with a six-month history of an umbilical hernia. She reports that previously it was reducible. The hernia has been protruding for 2 days, causing her pain, and causing her nausea and vomiting. I examined the patient. She has no sign of peritonitis. She is minimally tender over the hernia itself. The hernia was reduced with moderate pressure. Patient has no fevers, chills, or sign of peritonitis. I have recommended that the patient can be discharged home with outpatient follow-up with the [facility]. She is to avoid lifting or straining. Her weight limit is 10 pounds. If her symptoms worsen, she has been instructed to re-present to the emergency department immediately.
[2020-04-18 09:23] VITALS: BP 108/79
== END 2020-04-18 09:23 | disposition home or self-care (01) ==
LOC: ER 07:27
DX: K42.0 Umbilical hernia with obstruction, without gangrene (principal); R10.33 Periumbilical pain; R19.05 Periumbilic swelling, mass or lump; R11.2 Nausea with vomiting, unspecified; F17.200 Nicotine dependence, unspecified, uncomplicated; Z88.8 Allergy status to other drugs, medicaments and biological substances; I50.9 Heart failure, unspecified; J45.909 Unspecified asthma, uncomplicated
CPT/HCPCS: 99284; 96374; 96375; 36415; 85025; 80048; J3010; J2405

== ENCOUNTER 2020-04-18 14:28 | Emergency (ER) | payer MEDICAID ==
[2020-04-18] MEDS ORDERED: ONDANSETRON HCL INJ/PF 4 MG/2 ML SDV IV ONE (14:59)
--- NOTE | 2020-04-18 15:01 | ER Document Report ---
ED Medical Screen (RME) - General Chief Complaint: Abdominal Pain Stated Complaint: ABDOMINAL PAIN Time Seen by Provider: 04/18/20 14:53 Primary Care Provider: MARTINE BILLINGSLEY FNP-C [Primary Care Provider] - Follow up as needed TRAVEL OUTSIDE OF THE [place] IN LAST 30 DAYS: No - HPI Notes: 04/18/20 14:59 35-year-old female to the emergency department via EMS with complaints of a bdominal pain. This will make her third visit in the past 2 days. She initially came for abdominal pain and vomiting and was thought to have an incarcerated hernia but left after provider in triage. She was called to return this morning and she did so. She saw Dr. Tyson Rubio, on-call surgeon and apparently the hernia was reduced and she is supposed to follow with Dr. Bailey in the office. Patient states that after reduction her pain got worse and that she began vomiting when she got home after that. She states her pain is significant. She states that she called medics and they gave her 100 mcg of fentanyl. I performed a brief medical screening exam on the patient determined that the patient needs further evaluation and management by main side provider. I have placed initial orders to help expedite care. - Related Data Allergies/Adverse Reactions: morphine Allergy (Verified 04/18/20 07:38) Past Medical History - Past Medical History Cardiac Medical History: Reports: Hx Congestive Heart Failure Pulmonary Medical History: Reports: Hx Asthma Renal/ Medical History: Denies: Hx Peritoneal Dialysis Past Surgical History: Reports: Hx Gynecologic Surgery - d&C x 2 Physical Exam - Vital signs Vitals: Temp Pulse Resp BP Pulse Ox 99.1 F 112 H 20 131/84 H 95 04/18/20 14:42 04/18/20 14:42 04/18/20 14:42 04/18/20 14:42 04/18/20 14:42 Course - Vital Signs Vital signs: Temp Pulse Resp BP Pulse Ox 99.1 F 112 H 20 131/84 H 95 04/18/20 14:42 04/18/20 14:42 04/18/20 14:42 04/18/20 14:42 04/18/20 14:42 Doctor's Discharge - Discharge Referrals: MARTINE BILLINGSLEY FNP-C [Primary Care Provider] - Follow up as needed
[2020-04-18 18:02] VITALS: BP 125/85
--- NOTE | 2020-04-19 00:40 | ER Document Report ---
ED GI/ - General Chief Complaint: Abdominal Pain Stated Complaint: ABDOMINAL PAIN Time Seen by Provider: 04/18/20 14:53 Primary Care Provider: MARTINE BILLINGSLEY FNP-C [Primary Care Provider] - Follow up as needed TRAVEL OUTSIDE OF THE [place] IN LAST 30 DAYS: No - HPI Patient complains to provider of: Abdominal pain. No: Diarrhea, Dysuria, Hematuria Onset: Yesterday Timing/Duration: Sudden Notes: 04/19/20 00:32 Patient is a 35-year-old female who presents with abdominal pain. Patient was seen yesterday for abdominal pain. She had an ultrasound which showed an incarcerated hernia. Patient left from the waiting room before being seen. She was called back and told to return. Patient returned to the ER this morning. Surgery evaluated her in the ER and reduce the hernia. Patient states she felt better and was discharged. Patient returns again tonight because she states that the pain returned when she came home. She describes pain at the umbilical hernia site that radiates upward. She states she had some vomiting. She describes a low-grade fever at home. No diarrhea. - Related Data Allergies/Adverse Reactions: morphine Allergy (Verified 04/18/20 07:38) Past Medical History - General Information source: Patient - Social History Smoking Status: Current Some Day Smoker Chew tobacco use (# tins/day): No Frequency of alcohol use: None Drug Abuse: None Family History: Reviewed & Not Pertinent - Past Medical History Cardiac Medical History: Reports: Hx Congestive Heart Failure Pulmonary Medical History: Reports: Hx Asthma Renal/ Medical History: Denies: Hx Peritoneal Dialysis Past Surgical History: Reports: Hx Gynecologic Surgery - d&C x 2 Review of Systems - Review of Systems Notes: CONSTITUTIONAL: No fatigue or weight loss. Positive for low grade fever. SKIN: No rash. HENT: No congestion, ear pain, or sore throat. EYES: No recent vision problems or eye pain. ENDOCRINE: No thyroid problems. No polyuria or polydipsia. CARDIOVASCULAR: No chest pain or edema. RESPIRATORY: No cough, shortness of breath, congestion, or wheezing. GASTROINTESTINAL: Positive for abdominal pain, nausea, vomiting. No bloody stools or diarrhea. GENITOURINARY: No dysuria. MUSCULOSKELETAL: No joint pain or swelling. LYMPHATIC: No swollen glands. NEUROLOGIC: No seizures. No headache, focal weakness or sensory changes. HEMATOLOGIC: No unusual bruising or bleeding. PSYCHIATRIC: No depression or anxiety. Physical Exam - Vital signs Vitals: Temp Pulse Resp BP Pulse Ox 99.1 F 112 H 20 131/84 H 95 04/18/20 14:42 04/18/20 14:42 04/18/20 14:42 04/18/20 14:42 04/18/20 14:42 Interpretation: Normal Notes: VITAL SIGNS: Within normal limits. GENERAL: No acute distress, non-toxic appearance. HEAD: Normal with no signs of head trauma. EYES: EOMI, conjunctiva normal, no discharge. EARS: Hearing grossly intact. NOSE: Normal. THROAT: Oropharynx is normal. NECK: Normal range of motion, no tenderness, supple, no lymphadenopathy, No adenopathy, no JVD. CHEST: Clear breath sounds bilaterally. No wheezes, rales, or rhonchi. CARDIAC: Regular rate and rhythm. S1 and S2, without murmurs, gallops, or rubs. VASCULAR: No Edema. Peripheral pulses normal and equal in all extremities. ABDOMEN: Soft umbilical hernia palpated. No rebound or guarding. Discomfort to palpation of umbilical hernia. GASTROINTESTINAL: Bowel sounds normal GENITOURINARY: Normal, No tenderness LYMPATHTIC: No lymphadenopathy noted. MUSCULOSKELETAL: Good range of motion of all major joints. Extremities without clubbing, cyanosis or edema. NEUROLOGICAL: Alert and oriented x 3. No focal sensory or strength deficits. Speech normal. Follows commands appropriately. PSYCHIATRIC: Normal Affect, judgement and mood. SKIN: Normal appearance with no rashes or lesions. Course - Re-evaluation Re-evalutation: 04/19/20 00:36 She appears in no acute distress. She did have lab work this morning. Patient has not had a CT scan. I will order a CT scan and discuss with surgery. Surgery evaluated the patient in the ED and reduced the hernia. I went to reassess the patient and it appears that she had eloped prior to obtaining imaging. - Vital Signs Vital signs: Temp Pulse Resp BP Pulse Ox 98.8 F 81 16 125/85 98 04/18/20 18:00 04/18/20 18:00 04/18/20 18:00 04/18/20 18:00 04/18/20 18:00 - Diagnostic Test Radiology reviewed: Image reviewed, Reports reviewed Discharge - Discharge Clinical Impression: Abdominal pain Qualifiers: Abdominal location: periumbilical Qualified Code(s): R10.33 - Periumbilical pain Disposition: ELOPED Referrals: MARTINE BILLINGSLEY FNP-C [Primary Care Provider] - Follow up as needed
== END 2020-04-18 21:59 | disposition left against medical advice (07) ==
LOC: ER 14:28
DX: R10.33 Periumbilical pain (principal); R11.2 Nausea with vomiting, unspecified; R50.9 Fever, unspecified; Z88.8 Allergy status to other drugs, medicaments and biological substances; F17.200 Nicotine dependence, unspecified, uncomplicated; I50.9 Heart failure, unspecified; J45.909 Unspecified asthma, uncomplicated
CPT/HCPCS: 99281; J2405

== ENCOUNTER 2020-04-30 11:40 | Day surgery (SDC) | payer MEDICAID ==
[2020-04-25 13:11] LABS: HEMATOCRIT 38.1 % (36.0-47.0); HEMOGLOBIN 13.2 g/dL (12.0-15.5); MEAN CORPUSCULAR HEMOGLOBIN 30.7 pg (27.0-33.4); MEAN CORPUSCULAR HGB CONC 34.7 g/dL (32.0-36.0); MEAN CORPUSCULAR VOLUME 89 fl (80-97); PLATELET COUNT 361 10^3/uL (150-450); RED CELL DISTRIBUTION WIDTH 12.8 % (11.5-14.0); WHITE BLOOD COUNT 8.2 10^3/uL (4.0-10.5)
[~2020-04-30 11:40] MED LIST: IBUPROFEN 800 MG in NORMAL SALINE 250 ML IV PRN; LACTATED RINGERS 1000 ML IV PRN; LIDOCAINE 0.5% INJ-PF (5 MG/ML) 50 ML SDV SUBCUT PRN
[2020-04-30] MEDS ORDERED: FENTANYL CITRATE INJ/PF 250 MCG/5 ML AMPULE ONE (13:11)
[2020-04-30] MEDS ORDERED: MIDAZOLAM 2 MG/2 ML INJ ONE (13:11)
[2020-04-30] MEDS ORDERED: PROPOFOL INJ 200 MG/20 ML VIAL IV ONE (13:12)
[2020-04-30] MEDS: ACETAMINOPHEN 325 MG TABLET PO PRN ×2 (13:15→14:30)
[2020-04-30] MEDS: PREGABALIN 50 MG CAPSULE PO PRN ×2 (13:15→14:30)
[2020-04-30] MEDS ORDERED: BUPIVACAINE HCL 0.25 % INJ/PF (2.5 MG/1 ML) 30 ML VIAL ONE (13:18)
[2020-04-30] MEDS ORDERED: ACETAMINOPHEN 325 MG TABLET ONE (13:29)
[2020-04-30] MEDS ORDERED: PREGABALIN 50 MG CAPSULE ONE (13:30)
[2020-04-30] MEDS ORDERED: CEFAZOLIN INJ 1 GM VIAL ONE (13:50)
[2020-04-30] MEDS ORDERED: MEPERIDINE HCL/PF INJ 25 MG/1 ML DISP.SYRIN IV PRN (13:59)
[2020-04-30] MEDS ORDERED: PROMETHAZINE HCL INJ 25 MG/1 ML VIAL IV PRN (13:59)
[2020-04-30] MEDS ORDERED: DIPHENHYDRAMINE HCL 50 MG/ML VIAL IV PRN (13:59)
[2020-04-30] MEDS ORDERED: FENTANYL CITRATE INJ/PF 100 MCG/2 ML AMPUL IV PRN ×3 (13:59)
[2020-04-30] MEDS ORDERED: SUCCINYLCHOLINE CHLORIDE INJ 200 MG/10 ML VIAL ONE (14:02)
[2020-04-30] MEDS ORDERED: LIDOCAINE 2% INJ-PF (20 MG/ML) 2 ML AMPUL ONE (14:02)
[2020-04-30] MEDS ORDERED: ONDANSETRON HCL INJ/PF 4 MG/2 ML SDV ONE ×2 (14:02→15:18)
--- NOTE | 2020-04-30 14:27 | Discharge Summary ---
Discharge Summary (SDC) - Discharge Final Diagnosis: Symptomatic umbilical hernia Date of Surgery: 04/30/20 Discharge Date: 04/30/20 Condition: Stable Treatment or Instructions: Discharge home. Diet as tolerated. Activity: No lifting greater than 10 pounds x 6 weeks. No smoking. Follow-up with [facility] in 7 to 10 days. Carnation 10/325 mg p.o. every 6 hours as needed for pain. [id number] ibupr ofen as needed for breakthrough pain. Okay to shower starting on . No tub baths or swimming pools x2 weeks. Prescriptions: Hydrocodone/Acetaminophen [Carnation 10-325 mg Tablet] 1 tab PO Q6HP PRN #20 tablet PRN Reason: For Pain Referrals: MARTINE BILLINGSLEY FNP-C [Primary Care Provider] - Discharge Diet: As Tolerated Discharge Activity: No Lifting Over 10 Pounds, No Lifting/Push/Pulling Home Care Assistance: None Needed Report the Following to Your Physician Immediately: Shortness of Breath, Nausea, Vomiting, Increase in Pain, Fever over 101 Degrees, Unusual Bleeding, Redness
--- NOTE | 2020-04-30 14:32 | Operative Report ---
Nonrecallable Operative Report DATE OF SURGERY: 04/30/20 PREOPERATIVE DIAGNOSIS: Symptomatic umbilical hernia POSTOPERATIVE DIAGNOSIS: Same as above OPERATION: Open umbilical hernia repair with mesh SURGEON: ISRAEL TUTTLE 1ST LABEL OPERATOR: KSENIA MCGARRY ANESTHESIA: GA TISSUE REMOVED OR ALTERED: None COMPLICATIONS: None apparent ESTIMATED BLOOD LOSS: Minimal PROCEDURE: Drains/implants: Ventralex ST hernia mesh, 6.4 cm. Procedure in detail: After informed consent was obtained, the patient was brought to the operating room and laid in the supine position. The area of the abdomen was prepped and draped in a normal sterile fashion. An infraumbilical curvilinear incision was created with a 15 blade scalpel. Dissection was carried through the subcutaneous tissues using sharp and blunt dissection. The cicatrix was identified, encircled with a Kita clamp, and retracted upwards. The base of the cicatrix was divided, opening the hernia sac. There was preperitoneal fat protruding through the hernia defect. This was reduced back into the abdomen. The defect was found to be approximately 2 cm in maximal diameter. Secondary to this, a mesh was required for closure. A 6.4 cm ventralex hernia mesh was inserted into the abdomen. It was sutured to the anterior abdominal wall using 0 Prolene suture in mattress fashion circumferentially. The overlying fascia was then closed using 0 Prolene suture in [id number] fashion. The cicatrix was tacked back to the fascia using 3- 0 Vicryl suture. The subcutaneous tissues were closed using 3-0 Vicryl suture. The overlying skin was closed using 4-0 Vicryl Rapide suture in subcuticular fashion. Dressings were then placed, and the procedure was concluded. All sponge, instrument, needle counts were correct and 2. Condition: Stable. Ksenia Mcgarry PA-C was scrubbed and present the entirety of the procedure. She assisted with all portions of the procedure including opening of the abdomen, dissection of the hernia sac, placement of the mesh, closure of the fascia, closure of the skin.
[2020-04-30] MEDS ORDERED: FENTANYL CITRATE INJ/PF 100 MCG/2 ML AMPUL ONE (14:53)
[2020-04-30] MEDS ORDERED: KETOROLAC TROMETHAMINE INJ/PF 30 MG/1 ML SDV ONE (15:25)
[2020-04-30] MEDS ORDERED: PROMETHAZINE HCL INJ 25 MG/1 ML VIAL ONE (15:28)
[2020-04-30] MEDS: PROMETHAZINE HCL INJ 25 MG/1 ML VIAL IV PRN ×2 (15:30→15:40)
[2020-04-30] MEDS ORDERED: HYDROCODONE/ACETAMINOPHEN 10-325 MG TABLET ONE (16:05)
[2020-04-30] MEDS ORDERED: HYDROCODONE/ACETAMINOPHEN 10-325 MG TABLET PO ONE (16:45)
[2020-04-30 17:51] VITALS: BP 113/79
== END 2020-04-30 17:10 | disposition home or self-care (01) ==
LOC: OROUT 11:40
PROVIDERS: ATTEND Surgery
DX: K42.9 Umbilical hernia without obstruction or gangrene (principal); F17.210 Nicotine dependence, cigarettes, uncomplicated; M41.9 Scoliosis, unspecified; J45.909 Unspecified asthma, uncomplicated; F32.9 Major depressive disorder, single episode, unspecified; F41.9 Anxiety disorder, unspecified; Z79.899 Other long term (current) drug therapy; Z03.818 Encounter for observation for suspected exposure to other biological agents ruled out
CPT/HCPCS: 36415; 85027; 87635; 81025; 49585; C1781; J3490 ×4; J2250; J0690; J3010 ×2; J1885; J2550; J0330; J2405; J7050; J2704; J1741; C9803; 830